=== PATIENT | male | born 1965 | race Caucasian/White ===

== ENCOUNTER 2022-04-07 13:07 | Outpatient (CLI) | payer OTHER, SELFPAY ==
[2022-04-08 08:54] LABS: Chloride* 101 mmol/L (96-114); Potassium* 4.3 mmol/L (3.6-5.1); Sodium* 138 mmol/L (135-149)
[2022-04-08 08:57] LABS: Blood Urea Nitrogen* 14 mg/dL (7-30); Calcium* 9.2 mg/dL (8.4-10.6); Carbon Dioxide* 30 mmol/L (20-32); Creatinine* 0.8 mg/dL (0.5-1.5); Estimated Glomerular Filt Rate 104 ml/min; Glucose* 92 mg/dL (60-115)
== END 2022-04-07 13:08 | disposition home or self-care (01) ==
LOC: FBOREF 13:08
PROVIDERS: PCP Family Medicine; Visit Provider Family Medicine
DX: I10 Essential (primary) hypertension (principal)
CPT/HCPCS: 80048

== ENCOUNTER 2023-03-31 08:07 | Outpatient (CLI) | payer OTHER, SELFPAY | END 2023-03-31 08:08 | disposition home or self-care (01) | PROVIDERS: PCP Family Medicine; Visit Provider Family Medicine | DX: I10 Essential (primary) hypertension (principal) | CPT/HCPCS: 80048; 80061 ==

== ENCOUNTER 2024-04-12 09:44 | Outpatient (CLI) | payer BC, SELFPAY | END 2024-04-12 09:45 | disposition home or self-care (01) | LOC: FBOREF 09:45 | PROVIDERS: PCP Family Medicine; Visit Provider Family Medicine | DX: I10 Essential (primary) hypertension (principal) | CPT/HCPCS: 80048 ==